=== PATIENT | male | born 1940 | race Caucasian/White ===

== ENCOUNTER → 2017-12-18 | Day surgery (SDC) | payer OTHER, MEDICARE ==
[2017-12-15 11:49] LABS: BASOPHILS # (AUTO) 0.1 (0.0-0.1); EOSINOPHILS # (AUTO) 0.1 (0.0-0.4); EOSINOPHILS % 1.4 % (0.0-6.0); HEMOGLOBIN 14.5 g/dL (14.0-18.0); LYMPHOCYTES # (AUTO) 3.1 (1.0-3.2); LYMPHOCYTES % 34.7 % (18.0-39.1); MEAN CORPUSCULAR HEMOGLOBIN 31.6 pg (28-32); MEAN CORPUSCULAR VOLUME 95.9 fL (81-99); MONOCYTES # (AUTO) 1.3 (0.2-0.8); MONOCYTES % 14.3 % (4.4-11.3); NEUTROPHILS # (AUTO) 4.4 (2.1-6.9); NEUTROPHILS % 48.5 % (38.7-80.0); PLATELET COUNT 270 x10e3/uL (140-360); RED BLOOD COUNT 4.59 x10e6/uL (4.3-5.7); RED CELL DISTRIBUTION WIDTH 13.4 % (11.7-14.4)
[~2017-12-18] MED LIST: BUPIVACAINE HCL 0.5% 10ML MPF VIAL INJ ONE; CENTRUM SILVER1 EAC3; CIMZIA400 MG/2 M INJ; CRESTOR10 MG; FENTANYL CITRATE/PF 100MCG/2 ML INJ ONE; HYDRODIURIL PO; IOPAMIDOL 610MG/1ML 300 MG/ML VIAL IV ONE; LIDOCAINE HCL 1% LOCAL INJ 20 ML VIAL ONE; LIDOCAINE HCL 2% LOCAL INJ 5 ML SDV VIAL INJ ONE; LOSARTAN POTAS100 MG PO; LOSARTAN POTASS25 MG PO; MIDAZOLAM HCL 2 MG/2 ML VIAL ONE; PRESERVISION A1 EACH; PROCARDIA10 MG PO; PROPOFOL IV EMULSION 10 MG/ML 20 ML VIAL ONE; TOPROL XL50 MG PO; TRIAMCINOLONE ACET 40 MG/ML VIAL ONE; TRILIPIX135 MG; XARELTO20 MG PO
--- OUTSIDE RECORDS SUMMARY | 2017-12-18 07:06 | XMS REPORT | Clinical Summary ---
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 Disp. Refills Start End Date Status Date XARELTO 20 mg tablet 03/03/20 Active 17 losartan (COZAAR) 50 MG 05/16/20 Active tablet 17 TOPROL XL 100 mg 24 hr 05/15/20 Active tablet 17 choline fenofibrate Take 135 mg by mouth Active (TRILIPIX) 135 mg capsule daily. rosuvastatin (CRESTOR) 20 Take 20 mg by mouth Active MG tablet daily. NIFEdipine XL (PROCARDIA Take 60 mg by mouth Active XL) 60 MG 24 hr tablet daily. hydroCHLOROthiazide Take 25 mg by mouth Active (HYDRODIURIL) 25 MG daily. tablet diclofenac submicronized Take by mouth. Active (ZORVOLEX) 35 mg capsule aspirin (ECOTRIN) 81 MG Take 81 mg by mouth Active enteric coated tablet daily. etanercept (ENBREL) 50 Inject 50 mg under the Active mg/mL (0.98 mL) injection skin once a week. VIT Take by mouth. Active C/E/ZN/COPPR/LUTEIN/ZEAXA N (PRESERVISION AREDS 2 ORAL) FOLIC Take by mouth. Active ACID/MULTIVIT-MIN/LUTEIN (CENTRUM SILVER ORAL) Active Problems Problem Noted Date Right hip pain 05/18/2017 Encounters Date Type Specialty Care Team Description 05/18/2017 Office Visit Orthopedic Surgery Justino Blanton MD Right hip pain (Primary Dx); Chronic pain of right knee after 12/17/2016 Family History Medical History Relation Name Comments No Known Problems Father No Known Problems Mother Relation Name Status Comments Father Mother Social History Tobacco Use Types Packs/Day Years Used Date Former Smoker Alcohol Use Drinks/Week oz/Week Comments No Sex Assigned at Date Recorded Not on file Last Filed Vital Signs Vital Sign Reading Time Taken Blood Pressure - - Pulse - - Temperature - - Respiratory Rate - - Oxygen Saturation - - Inhaled Oxygen - - Concentration Weight 96.2 kg (212 lb) 05/18/2017 11:01 AM CDT Height 175.3 cm (5' 9") 05/18/2017 11:01 AM CDT Body Mass Index 31.31 05/18/2017 11:01 AM CDT Plan of Treatment Health Maintenance Due Date Last Done Comments ZOSTER VACCINE 1999 PNEUMOCOCCAL 2004 POLYSACCHARIDE VACCINE AGE 65 AND OVER PNEUMOCOCCAL-13 2004 INFLUENZA VACCINE 05/16/2017 Results * XR Knee 4+ Vw Right (05/18/2017 11:30 AM) Specimen Performing Laboratory [facility] [address] [place] [address] Narrative Weightbearing AP and PA x-rays on the knees bilaterally with a lateral x-ray of the right knee: Patient has bilaterally cemented total knee arthroplasties that appear to be well aligned and fixed. There is no evidence of implant failure or ostial lysis * XR Hip 4 Views Right (05/18/2017 11:23 AM) [facility] [place] [address] Narrative AP pelvis with groin lateral of the right hip: There is no significant arthropathy or bony abnormality evident after 12/17/2016 Insurance Payer Benefit Subscriber ID Type Phone Address Plan / Group MEDICARE MEDICARE xxxxxxxxxx Medicare [place], [place] PART A AND B AETNA AETNA xxxxxxxxxx Indemnity [employer] [place] [address]
--- NOTE | 2017-12-18 12:21 | Operative Report ---
DATE OF PROCEDURE: December 18, 2017 PREOPERATIVE DIAGNOSIS: Osteoarthritis, right hip. POSTOPERATIVE DIAGNOSIS: Osteoarthritis, right hip. RAIL GRINDER: None. PROCEDURE: Right hip fluoroscopic corticosteroid injection. INDICATIONS: The patient is a 77-year-old gentleman with multiple medical problems. He has long-standing problems of his back and has arthritic changes in his right hip. He would like to try a right hip fluoroscopic corticosteroid injection. The risks and benefits were explained. He states he understands and wishes to proceed. DESCRIPTION OF PROCEDURE: The patient was brought to the procedure room. He was given a MAC anesthetic. His right hip was prepped and draped in a sterile manner. A preoperative time out was performed. A C-arm image intensifier was used to assist in placing a spinal needle into the hip joint. A small amount of radiopaque dye was injected to confirm intra-articular position. A mixture of 10 mL of 0.50% Marcaine and 40 mg of Solu-Medrol were then injected into the hip joint. A final x-ray confirmed intra-articular injection of the medicine. The needle was retrieved and a Band-Aid was applied. There was no blood loss and all needle and sponge counts were correct. Job#: [id number]
== END | disposition home or self-care (01) ==
LOC: OR 07:03
PROVIDERS: ATTEND Specialist
DX: M16.11 Unilateral primary osteoarthritis, right hip (principal); Z96.653 Presence of artificial knee joint, bilateral; I25.810 Atherosclerosis of coronary artery bypass graft(s) without angina pectoris; I10 Essential (primary) hypertension; I48.91 Unspecified atrial fibrillation; Z01.810 Encounter for preprocedural cardiovascular examination; Z79.02 Long term (current) use of antithrombotics/antiplatelets; Z95.1 Presence of aortocoronary bypass graft
CPT/HCPCS: 20610; 36415; 76000; 85025; 93005; J2001; J2250; J3301; Q9967